=== PATIENT | male | born 1980 | race Caucasian/White ===

== ENCOUNTER 2021-04-07 23:37 | Emergency (ER) | payer MEDICARE ==
[~2021-04-07 23:37] MED LIST: ATARAX25 MG PO; FLONASE ALLER15.8 ML; IBUPROFEN800 MG PO; MUCINEX 600MG600 MG PO; NAPROXEN500 MG PO; SUDAFED30 MG PO
== END 2021-04-08 04:20 | disposition home or self-care (01) ==
LOC: FER 23:37
DX: F19.90 Other psychoactive substance use, unspecified, uncomplicated (principal)
CPT/HCPCS: J2060; J7030

== ENCOUNTER 2021-05-05 11:21 | Emergency (ER) | payer MEDICARE ==
[2021-05-05 13:19] LABS: BILIRUBIN NEGATIVE (NEGATIVE); BLOOD NEGATIVE Ery/uL (NEGATIVE); CLARITY CLEAR (CLEAR); COLOR YELLOW (YELLOW); GLUCOSE (U) NORMAL (NORMAL); LEUKOCYTES NEGATIVE Leu/uL (NEGATIVE); NITRITE NEGATIVE (NEGATIVE); PROTEIN NEGATIVE (NEGATIVE); UROBILINOGEN 0.2 mg/dL (0.2-1.0); pH 7.5 (5.0-9.0)
[2021-05-05 13:23] LABS: AMPHETAMINES NEGATIVE (NEGATIVE); BARBITURATES NEGATIVE (NEGATIVE); ECSTASY (MDMA) NEGATIVE (NEGATIVE); MARIJUANA (THC) NEGATIVE (NEGATIVE); METHADONE NEGATIVE (NEGATIVE); OPIATES NEGATIVE (NEGATIVE); OXYCODONE NEGATIVE (NEGATIVE)
[2021-05-05 13:35] LABS: BASOPHIL 0.7 % (0-2); EOSINOPHIL 0.7 % (0-5); HCT 45.7 % (42.0-52.0); LYMPHOCYTE 19.1 % (15-48); MCH 29.5 pg (25.0-31.0); MCHC 32.8 g/dL (32.0-36.0); MONOCYTE 5.9 % (0-12); MPV 10.2 fL (6.0-9.5); NEUTROPHIL 73.4 % (41-80); NRBC 0; PLT 336 K/uL (150-400); RBC 5.08 M/uL (4.70-6.00); RDW 12.7 % (11.5-14.0); WBC 8.4 K/uL (4.0-10.5)
[2021-05-05 14:08] LABS: ALBUMIN 3.6 g/dL (3.4-5.0); BILIRUBIN - TOTAL 0.5 mg/dL (0.2-1.0); BUN/CREAT RATIO (CALC) 8.8 RATIO; CREATININE 0.91 mg/dL (0.67-1.17); GLOBULIN (CALCULATION) 3.7 g/dL; TOTAL PROTEIN 7.3 g/dL (6.4-8.2)
== END 2021-05-05 14:45 | disposition home or self-care (01) ==
LOC: FER 11:21
PROVIDERS: Emergency Medicine
DX: R10.11 Right upper quadrant pain (principal); F17.200 Nicotine dependence, unspecified, uncomplicated
CPT/HCPCS: 36415; 80053; 80305; 81003; 82150; 83690; 85025; J1885; J2060

== ENCOUNTER 2021-09-30 23:34 | Emergency (ER) | payer MEDICARE ==
[2021-10-01] MEDS ORDERED: BACTRIM DS TAB1 EACH PO (09:01)
[2021-10-01] MEDS ORDERED: CEPHALEXIN500 MG PO (09:01)
== END 2021-10-01 09:15 | disposition home or self-care (01) ==
LOC: FER 23:34
DX: F15.929 Other stimulant use, unspecified with intoxication, unspecified (principal); F17.200 Nicotine dependence, unspecified, uncomplicated
CPT/HCPCS: 99284; J3486